=== PATIENT | male | born 1980 | race Caucasian/White ===

== ENCOUNTER → 2021-07-09 | Outpatient (CLI) | payer SELFPAY ==
--- NOTE | 2021-07-09 16:18 | Diagnostic Imaging Report ---
INDICATION: Pain in the left wrist on the radial side. TIME OF EXAM: 2:25 PM 3 views of the left wrist demonstrate distal radius and ulna to be intact. Carpus is intact. Metacarpals are unremarkable. No fractures are seen. IMPRESSION: No acute bony abnormality is detected. Dictated by: Dictated on workstation # [id number]
== END ==
LOC: ORTHO 14:03 → EDBD 14:03
PROVIDERS: ATTEND Orthopaedic Surgery
DX: M25.532 Pain in left wrist (principal)
CPT/HCPCS: 73110; G0463; 99202